=== PATIENT | male | born 1955 | race Two or more races ===

== ENCOUNTER 2016-07-08 18:10 | Emergency (ER) | payer OTHER, MEDICAID ==
[2016-07-08] MEDS ORDERED: Acetaminophen/oxyCODONE 325-5 MG Tab PO ONE ×2 (18:39→22:40)
[2016-07-08] MEDS ORDERED: Lidocaine 1% 50 ML MDV INJECT ONE (18:40)
--- NOTE | 2016-07-08 18:49 | EDM.PDOC ---
ED HPI Trauma - General Chief Complaint: Upper Extremity Injury/Pain Stated Complaint: L THUMB LACERATION Time Seen by Provider: 07/08/16 18:28 Source: Reports: Patient History Limitations: Reports: No limitations - History of Present Illness INITIAL COMMENTS - FREE TEXT/NARRATIVE: 61 year old male presents for evaluation and treatment of an injury to the left thumb. Patient reports injury occurred prior to arrival in the ER. Patient was using a cutting wheel to cut a bolt when he lost control cutting his left dorsal thumb over the IP joint. He states that he had significant amount of bleeding. He is concerned the wound went to the bone. He feels that his thumb is cold but his immediately wrapped the wound very tightly. He is able to flex and oppose the thumb but is hesitant to do so do to the bleeding. Tetanus is up-to-date. Last tetanus was 5 years ago. Occurred When: just prior to arrival Occurred Where: home Pain/Injury Location: Reports: upper extremity, left Allergies/ADRs: Allergies No Known Allergies Allergy (Verified 09/21/15 11:13) Home Medications: Ambulatory Orders Insulin Glarg,Human.Rec.Analog [LantUS Solostar] 38 units SQ BEDTIME 09/21/15 [ Confirmed 07/08/16] Insulin Regular, Human [Afrezza] 8 units SQ ASDIRECTED 09/21/15 [Confirmed 07/08] Lisinopril 2.5 mg PO DAILY 09/21/15 [Confirmed 07/08/16] atorvaSTATin Calcium [Atorvastatin Calcium] 80 mg PO DAILY 09/21/15 [Confirmed 07/08/16] Acetaminophen/oxyCODONE [Percocet 325-5 MG] 1 tab PO Q6H #20 tablet 07/08/16 Cephalexin [IJD: Cephalexin] 500 mg PO .EVERY 8 HOURS #30 cap 07/08/16 Past Medical History Cardiovascular History: Reports: High cholesterol, Hypertension Genitourinary History: Reports: Renal calculus Endocrine/Metabolic History: Reports: Diabetes, type I - Past Surgical History GI Surgical History: Reports: Cholecystectomy Male Surgical History: Reports: Vasectomy Social & Family History - Family History Psychiatric: Reports: Other (see below) Other Psychiatric Family History: alcohol abuse Endocrine/Metabolic: Reports: Diabetes, type II - Tobacco Use Smoking Status *Q: Never Smoker Second Hand Smoke Exposure: No - Caffeine Use Caffeine Use: Reports: Coffee - Recreational Drug Use Recreational Drug Use: No Review of Systems - Review of Systems Review Of Systems: See Below Musculoskeletal: Reports: hand pain (left thumb) Skin: Reports: wound (left thumb over IP joint) Neurological: Reports: Numbness (initally but has resolved with removal of pressure dressing). Denies: Tingling Trauma Exam - Physical Exam Exam: See Below Exam Limited By: No limitations General Appearance: Reports: alert, WD/WN, no apparent distress Respiratory Exam: Reports: no respiratory distress Cardiovascular: Reports: normal peripheral pulses (3+ radial pulses bilaterally ), regular rate, rhythm Extremities: Reports: normal range of motion (patient is able to make a fist, adduct, abduct flex and extend the thumb both with and without resistance and oppose fingers to thumb), pain with movement (with flexion of the left thumb), tenderness (left thumb) Neurologic: Reports: no motor/sensory deficits, alert Skin: Reports: Normal color, Warm/dry ED TRAUMA EXTREMITY PROCEDURES - Laceration/Wound Repair Left Dorsal Finger Lac/wound length in cm: 3.8 Appearance: subcutaneous, linear Distal NVT: neuro & vascular intact, no tendon injury Anesthetic type: local Local anesthesia - Lidocaine (Xylocaine): 1% plain Local anesthetic volume: 5cc Skin prep: saline, sterile drape, other (surclens) Saline irrigation (cc's): 400 Exploration/Debridement/Repair: wound explored, no foreign material found Closed with: sutures Suture size: 4-0 # of sutures: 8 Suture type: silk, interrupted, simple Sterile dressing applied: nurse Tetanus status addressed: Yes Complications: No Course - Vital Signs Last Recorded V/S: Last Vital Signs Temp Pulse 84 07/08/16 23:06 Resp 16 07/08/16 23:06 BP 140/76 07/08/16 23:06 Pulse Ox 98 07/08/16 23:06 - Orders/Labs/Meds Meds: Medications Discontinued Medications Generic Name Dose Route Start Last Admin Trade Name Terra PRN Reason Stop Dose Admin Cephalexin 500 mg 07/08/16 22:40 07/08/16 22:51 Keflex PO 07/08/16 22:41 500 mg ONETIME ONE Administration Lidocaine HCl 50 ml 07/08/16 18:40 07/08/16 19:04 Xylocaine 1% INJECT 07/08/16 18:41 50 ml ONETIME ONE Administration Oxycodone/Acetaminophen 1 tab 07/08/16 18:39 07/08/16 19:03 Percocet 325-5 Mg PO 07/08/16 18:40 1 tab ONETIME ONE Administration Oxycodone/Acetaminophen 1 tab 07/08/16 22:40 07/08/16 22:53 Percocet 325-5 Mg PO 07/08/16 22:41 1 tab ONETIME ONE Administration - Radiology Interpretation Free Text/Narrative:: xray of the left thumb reviewed by myself and Dr. Lee. Concern for bony fragments from the wound. Soft tissue wound appreciated. - Re-Assessments/Exams Free Text/Narrative Re-Assessment/Exam: 07/08/16 22:38 Percocet was given for the pain with good relief. I contacted Dr. Mehta regarding this patient as I was concerned about possible bone involvement. He reviewed the x-rays and recommended irrigation in the ER and closure of the wound with sutures. Did not feel that this was bone involvement. Recommended Keflex as the patient is a diabetic. 8 sutures were placed to the patient's left dorsal thumb. He tolerated the procedure well. I will give him another Percocet as he is continuing to have some pain. I will discharge him home with close monitoring as he is a diabetic. Tetanus is up-to-date. Discharge instructions as documented. Departure - Departure Time of Disposition: 22:43 Disposition: Home, Self-Care 01 Condition: good Clinical Impression: Laceration Prescriptions: Acetaminophen/oxyCODONE [Percocet 325-5 MG] 1 tab PO Q6H #20 tablet Cephalexin [IJD: Cephalexin] 500 mg PO .EVERY 8 HOURS #30 cap Instructions: Laceration Care, Adult, [id number] Referrals: Constance Pina PA-C [Primary Care Provider] - Forms: ED Department Discharge Additional Instructions: You were given medication in the ER that can affect your ability to drive and operate machinery. Do not drive or operate machinery within 12 hours of taking prescription narcotic pain medication. may take [id number] ibuprofen for pain. may take the Percocet one tab every 4-6 hours as needed for severe pain. Percocet can be habit-forming, I recommend you take as few of these as need to control your pain. Do not drive or operate machinery within 12 hours of taking Percocet. follow up with your primary care provider this week for a recheck. Then follow up in 10 days for suture removal. Monitor for signs of infection such as increased swelling, pus or redness. Presents to the clinic or the ER should these develop. Antibiotics as prescribed. First dose was given here in the ER tonight. Take one tab every 8 hours. He may take this with food as antibiotics can sometimes cause upset stomach. start a probiotic if you notice any upset stomach or diarrhea. wear The splint at all times. please return to the ER should your symptoms change or worsen.
[2016-07-08] MEDS ORDERED: Cephalexin 500 MG Cap PO ONE (22:40)
[2016-07-08 23:07] VITALS: BP 140/76
--- NOTE | 2016-07-09 16:49 | CR ---
Left thumb: Three views of the left thumb were obtained. Comparison: No previous study. Mild degenerative change seen within the IP joint. Bony densities are seen which appear to be chronic. Soft tissue injury also noted near the IP joint. No additional abnormality is seen. Impression: 1. Degenerative change at the IP joint. 2. Soft tissue injury is seen. No acute bony abnormality is identified. Diagnostic code #2
== END 2016-07-08 23:00 | disposition home or self-care (01) ==
LOC: JD.ED 18:10
DX: S61.012A Laceration without foreign body of left thumb without damage to nail, initial encounter (principal); I10 Essential (primary) hypertension; E78.00 Pure hypercholesterolemia, unspecified; E10.9 Type 1 diabetes mellitus without complications; Z79.899 Other long term (current) drug therapy; W31.1XXA Contact with metalworking machines, initial encounter
CPT/HCPCS: 12002; 73140; 99283; A9270

== ENCOUNTER 2020-06-29 14:46 | Emergency (ER) | payer OTHER ==
--- NOTE | 2020-06-29 15:16 | EDM.PDOC ---
ED HPI GENERAL MEDICAL PROBLEM - General Chief Complaint: Fever Stated Complaint: COVID + Time Seen by Provider: 06/29/20 15:06 Source of Information: Reports: Patient History Limitations: Reports: No Limitations - History of Present Illness INITIAL COMMENTS - FREE TEXT/NARRATIVE: 65 he presents to the ED today for monoclonal antibody therapy after visiting with the [facility]. His O2 sats are 94 to 97% on room air and he is therefore a candidate.-year-old male presents to the ED knowing that he is Covid positive. He started feeling unwell on Sunday, June 25 with fatigue. 4 of his coworkers had come down with COVID-19 within the previous 3 days. He was tested at the [place] [facility] and tested positive. Patient is an insulin-dependent diabetic for 15 years and diabetic x17 years. He would be classified as a type 1.5 diabetic since he is not overweight but diabetes occurred at late onset. Blood sugar this morning was 118. Current symptoms are that of complete loss of sense of taste and smell. He has a headache generalized myalgia still having some fever and chills. Complete loss of appetite vomited once last night and had 2 loose yellow stools last evening. He has not eaten anything today. He is experiencing heartburn with brash water reflux which is not normal for him. He feels only mildly short of breath and has a minimal cough. Cough is nonproduct kilo. He has not had any COVID-19 vaccinations. Onset: Sudden Onset Date: 06/25/20 (Darted with fatigue then generalized myalgia headache loss of appetite and loss of sense of taste and smell over the weekend.) Duration: Day(s): (Currently on day 5 of illness), Constant, Getting Worse Location: Reports: Head, Chest (Paroxysmal intermittent cough nonproductive.), Generalized (Generalized myalgia with headache), Other (Headache complete loss of appetite with vomiting last 8 and mild diarrhea. Experiencing GERD today with brash water reflux) Quality: Reports: Ache Severity: Moderate (Generalized 7 out of 10) Improves with: Reports: Medication (Improves body ache with Tylenol and Motrin) Context: Denies: Activity, Exercise, Lifting, Sick Contact, Trauma, Other Associated Symptoms: Reports: Cough, Fever/Chills, Headaches (For the last 5 days for the last 5 days), Loss of Appetite, Malaise (Nonproductive), Nausea/Vomiting (Did once last night.), Shortness of Breath, Weakness (Overwhelming fatigue and weakness), Other (Loss of sense of taste and smell x4 days.). 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, NSAIDS (Motrin sparingly.) - Related Data Allergies Allergy/AdvReac Type Severity Reaction Status Date / Time No Known Allergies Allergy Verified 06/29/20 14:57 Home Meds: Home Meds Insulin Glarg,Human.Rec.Analog [LantUS Solostar] 30 units SQ DAILY 09/21/15 [History] Insulin Regular, Human [Afrezza] 0 units SQ ASDIRECTED 09/21/15 [History] atorvaSTATin Calcium [Atorvastatin Calcium] 80 mg PO DAILY 09/21/15 [History] Alogliptin Benzoate [Alogliptin] 25 mg PO DAILY 06/29/20 [History] Cholecalciferol (Vitamin D3) [Vitamin D3] 1,250 mcg PO DAILY 06/29/20 [History] Empagliflozin [Jardiance] 25 mg PO DAILY 06/29/20 [History] glipiZIDE [Glucotrol XL] 20 mg PO BID 06/29/20 [History] Past Medical History Cardiovascular History: Reports: High Cholesterol, Hypertension Genitourinary History: Reports: Renal Calculus Endocrine/Metabolic History: Reports: Diabetes, Type I (Is classified is a type 1.5 diabetic. He was diagnosed 17 years ago and has been on insulin for 15 years. Blood sugar this morning was 118 at home without eating today.) - Infectious Disease History Infectious Disease History: Reports: Novel Coronavirus - Past Surgical History GI Surgical History: Reports: Cholecystectomy Male Surgical History: Reports: Vasectomy Social & Family History - Family History Psychiatric: Reports: Other (See Below) Other Psychiatric Family History: alcohol abuse Endocrine/Metabolic: Reports: Diabetes, type II - Tobacco Use Tobacco Use Status *Q: Never Tobacco User - Caffeine Use Caffeine Use: Reports: Coffee - Recreational Drug Use Recreational Drug Use: No - Living Situation & Occupation Living situation: Reports: Occupation: Employed ED ROS GENERAL - Review of Systems Review Of Systems: See Below Constitutional: Reports: Fever, Chills, Malaise, Weakness, Fatigue, Decreased Appetite, Weight Loss (Mild weight loss.) HEENT: Reports: Other (Patient has lost his sense of taste and smell 4 days ago) Respiratory: Reports: Shortness of Breath, Cough. Denies: Wheezing, Pleuritic Chest Pain, Sputum, Hemoptysis (Mild nonproductive cough) Cardiovascular: Reports: Dyspnea on Exertion, Lightheadedness. Denies: Chest Pain, Blood Pressure Problem, Claudication, Edema, Orthopnea, Palpitations Endocrine: Reports: Fatigue GI/Abdominal: Reports: Diarrhea (Diarrhea x2 early this morning and last night yellow loose small-volume), Decreased Appetite, Nausea, Vomiting (Vomited once last night.) : Reports: No Symptoms Musculoskeletal: Reports: Muscle Pain (Generalized myalgia) Skin: Reports: No Symptoms Neurological: Reports: Dizziness, Headache, Difficulty Walking (Weakness), Weakness. Denies: Numbness, Syncope, Tingling Psychiatric: Reports: No Symptoms Hematologic/Lymphatic: Reports: No Symptoms Immunologic: Reports: No Symptoms ED EXAM, GENERAL - Physical Exam Exam: See Below Exam Limited By: No Limitations General Appearance: Alert, WD/WN, No Apparent Distress, Other (Current temperature is 36.4 and he does not feel real warm to palpation. Heart rate was 72 and sinus respiratory was 16 to 18/min with O2 sats of 94 to 97% at rest. BP initially 144/76. Blood pressure is 119/70) Eye Exam: Bilateral Eye: Normal Inspection (No scleral icterus or blepharal pallor.), PERRL Ears: Normal TMs Throat/Mouth: Normal Oropharynx, Other (Is mildly dry) Head: Normocephalic (No oropharyngeal infection.), Sinus Tenderness Neck: Normal Inspection, Supple, Non-Tender, Full Range of Motion. No: Carotid Bruit, Lymphadenopathy (L), Lymphadenopathy (R), Thyromegaly Respiratory/Chest: No Respiratory Distress, Lungs Clear, Normal Breath Sounds, No Accessory Muscle Use Cardiovascular: Regular Rate, Rhythm, No Edema, No Gallop, No Murmur, No Rub Peripheral Pulses: 2+: Carotid (L), Carotid (R), Posterior Tibial (L), Posterior Tibial (R), Dorsalis Pedis (L), Dorsalis Pedis (R) GI/Abdominal: Normal Bowel Sounds, Soft, No Organomegaly, No Abnormal Bruit, No Mass, Pelvis Stable, Tender. No: Guarding, Rigid, Rebound Back Exam: Normal Inspection, Full Range of Motion. No: CVA Tenderness (L), CVA Tenderness (R) Extremities: Normal Inspection, Normal Range of Motion, Non-Tender, No Pedal Edema Neurological: Alert, Oriented, CN II-XII Intact, Normal Cognition Psychiatric: Normal Affect, Normal Mood Skin Exam: Warm, Dry, Intact, Normal Color, No Rash #1 Interpretation EKG Date: 06/29/20 Time: 16:30 Rhythm: NSR Rate (Beats/Min): 61 Machias: LAD-Left Machias Deviation P-Wave: Present (Minimal left axis deviation -8 degrees) QRS: Other (Q-wave V1 which could be normal. RSR prime wave I believe in V2 which is considered normal variant.) ST-T: Other (Diffuse early repolarization pattern no signs of true ischemia. T wave flattening aVL and lead III nonspecific finding) QT: Normal EKG Interpretation Comments: ECG Course - Vital Signs Last Recorded V/S: Last Vital Signs Temp 36.4 C 06/29/20 14:55 Pulse 74 06/29/20 18:00 Resp 16 06/29/20 17:15 BP 122/65 06/29/20 18:00 Pulse Ox 95 06/29/20 18:00 - Orders/Labs/Meds Orders: Active Orders 24 hr Category Date Time Status EKG Documentation Completion [RC] STAT Care 06/29/20 15:25 Active Vital Signs [RC] Q15M Care 06/29/20 15:29 Active Vital Signs [RC] Q15M Care 06/29/20 16:01 Active C-REACTIVE PROTEIN [CHEM] Stat Lab 06/29/20 16:22 Results COMPREHENSIVE METABOLIC PN,CMP [CHEM] Stat Lab 06/29/20 16:22 Results FERRITIN [CHEM] Stat Lab 06/29/20 16:22 Received LACTATE DEHYDROGENASE,LDH [CHEM] Stat Lab 06/29/20 16:22 Results MAGNESIUM [CHEM] Stat Lab 06/29/20 16:22 Results PRO B-TYPE NATRIUR PEPT,BNPPRO [CHEM] Stat Lab 06/29/20 16:22 Received TROPONIN I [CHEM] Stat Lab 06/29/20 16:22 Results Dextrose 5%-0.9% NaCl [Dextrose 5%-Normal Saline] 1,000 Med 06/29/20 15:30 Active ml IV ASDIRECTED EPINEPHrine [Adrenalin] Med 06/29/20 15:29 Active 0.3 mg IM ONETIME PRN EPINEPHrine [Adrenalin] Med 06/29/20 16:01 Active 0.3 mg IM ONETIME PRN Famotidine [Pepcid] Med 06/29/20 15:29 Active 20 mg IVPUSH ONETIME PRN Famotidine [Pepcid] Med 06/29/20 16:01 Active 20 mg IVPUSH ONETIME PRN Sodium Chloride 0.9% [Saline Flush] Med 06/29/20 15:30 Active 30 ml FLUSH ASDIRECTED Sodium Chloride 0.9% [Saline Flush] Med 06/29/20 16:15 Active 30 ml FLUSH ASDIRECTED diphenhydrAMINE [Benadryl] Med 06/29/20 15:29 Active 50 mg IVPUSH ONETIME PRN diphenhydrAMINE [Benadryl] Med 06/29/20 16:01 Active 50 mg IVPUSH ONETIME PRN methylPREDNISolone Sod Succ [Solu-MEDROL] Med 06/29/20 15:29 Active 125 mg IVPUSH ONETIME PRN methylPREDNISolone Sod Succ [Solu-MEDROL] Med 06/29/20 16:01 Active 125 mg IVPUSH ONETIME PRN Medication Orders Diphenhydramine HCl (Diphenhydramine 50 Mg/Ml Sdv) 50 mg IVPUSH ONETIME PRN PRN Reason: hypersensitivity reaction Diphenhydramine HCl (Diphenhydramine 50 Mg/Ml Sdv) 50 mg IVPUSH ONETIME PRN PRN Reason: hypersensitivity reaction Epinephrine HCl (Epinephrine 1 Mg/Ml Sdv) 0.3 mg IM ONETIME PRN PRN Reason: hypersensitivity reaction Epinephrine HCl (Epinephrine 1 Mg/Ml Sdv) 0.3 mg IM ONETIME PRN PRN Reason: hypersensitivity reaction Famotidine (Famotidine 20 Mg/2 Ml Sdv) 20 mg IVPUSH ONETIME PRN PRN Reason: hypersensitivity reaction Famotidine (Famotidine 20 Mg/2 Ml Sdv) 20 mg IVPUSH ONETIME PRN PRN Reason: hypersensitivity reaction Dextrose/Sodium Chloride (Dextrose 5%-Normal Saline) 1,000 mls @ 125 mls/hr IV ASDIRECTED ALESSANDRA Last Admin: 06/29/20 16:26 Dose: 125 mls/hr Documented by: MATLBIL Methylprednisolone Sodium Succinate (Methylprednisolone Sodium Succinate 125 Mg/2 Ml Sdv) 125 mg IVPUSH ONETIME PRN PRN Reason: hypersensitivity reaction Methylprednisolone Sodium Succinate (Methylprednisolone Sodium Succinate 125 Mg/2 Ml Sdv) 125 mg IVPUSH ONETIME PRN PRN Reason: hypersensitivity reaction Sodium Chloride (Sodium Chloride 0.9% 10 Ml Syringe) 30 ml FLUSH ASDIRECTED ALESSANDRA Sodium Chloride (Sodium Chloride 0.9% 10 Ml Syringe) 30 ml FLUSH ASDIRECTED ALESSANDRA Labs: Laboratory Tests 06/29/20 06/29/20 06/29/20 Range/Units 16:22 16:22 16:22 WBC 7.59 (4.23-9.07) K/mm3 RBC 5.05 (4.63-6.08) M/mm3 Hgb 14.9 (13.7-17.5) gm/dl Hct 45.0 (40.1-51.0) % MCV 89.1 (79.0-92.2) fl MCH 29.5 (25.7-32.2) pg MCHC 33.1 (32.2-35.5) g/dl RDW Std Deviation 46.2 H (35.1-43.9) fL Plt Count 162 L (163-337) K/mm3 MPV 10.4 (9.4-12.3) fl Neut % (Auto) 67.8 (34.0-67.9) % Lymph % (Auto) 24.8 (21.8-53.1) % [place] % (Auto) 7.0 (5.3-12.2) % Eos % (Auto) 0 L (0.8-7.0) Baso % (Auto) 0.1 (0.1-1.2) % Neut # (Auto) 5.15 (1.78-5.38) K/mm3 Lymph # (Auto) 1.88 (1.32-3.57) K/mm3 [place] # (Auto) 0.53 (0.30-0.82) K/mm3 Eos # (Auto) 0.00 L (0.04-0.54) K/mm3 Baso # (Auto) 0.01 (0.01-0.08) K/mm3 Manual Slide Review PT 10.3 (9.7-12.0) SECONDS INR 0.96 APTT 21.9 (21.7-31.4) SECONDS D-Dimer, Quantitative 1.09 H (0.19-0.50) mg/L Sodium 138 (136-145) mEq/L Potassium 4.0 (3.5-5.1) mEq/L Chloride 99 (98-107) mEq/L Carbon Dioxide 28 (21-32) mEq/L Anion Gap 15.0 (5-15) BUN 24 H (7-18) mg/dL Creatinine 1.3 (0.7-1.3) mg/dL Est Cr Clr Drug Dosing TNP Estimated GFR (MDRD) 56 (>60) mL/min BUN/Creatinine Ratio 18.5 H (14-18) Glucose 155 H (80-115) mg/dL Calcium 8.8 (8.5-10.1) mg/dL Magnesium 2.1 (1.8-2.4) mg/dl Total Bilirubin 0.5 (0.2-1.0) mg/dL AST 26 (15-37) U/L ALT 24 (16-63) U/L Alkaline Phosphatase 105 (46-116) U/L Troponin I < 0.017 (0.00-0.056) ng/mL C-Reactive Protein 4.5 H* (<1.0) mg/dL Total Protein 7.9 (6.4-8.2) g/dl Albumin 3.4 (3.4-5.0) g/dl Globulin 4.5 gm/dL Albumin/Globulin Ratio 0.8 L (1-2) Meds: Medications Generic Name Dose Route Start Last Admin Trade Name Freq PRN Reason Stop Dose Admin Diphenhydramine HCl 50 mg 06/29/20 16:01 Diphenhydramine 50 Mg/Ml Sdv IVPUSH ONETIME PRN hypersensitivity reaction Diphenhydramine HCl 50 mg 06/29/20 15:29 Diphenhydramine 50 Mg/Ml Sdv IVPUSH ONETIME PRN hypersensitivity reaction Epinephrine HCl 0.3 mg 06/29/20 16:01 Epinephrine 1 Mg/Ml Sdv IM ONETIME PRN hypersensitivity reaction Epinephrine HCl 0.3 mg 06/29/20 15:29 Epinephrine 1 Mg/Ml Sdv IM ONETIME PRN hypersensitivity reaction Famotidine 20 mg 06/29/20 16:01 Famotidine 20 Mg/2 Ml Sdv IVPUSH ONETIME PRN hypersensitivity reaction Famotidine 20 mg 06/29/20 15:29 Famotidine 20 Mg/2 Ml Sdv IVPUSH ONETIME PRN hypersensitivity reaction Dextrose/Sodium Chloride 1,000 mls @ 125 mls/hr 06/29/20 15:30 06/29/20 16:26 Dextrose 5%-Normal Saline IV 125 mls/hr ASDIRECTED ALESSANDRA Administration Methylprednisolone Sodium Succinate 125 mg 06/29/20 16:01 Methylprednisolone Sodium Succinate 125 Mg/2 Ml Sdv IVPUSH ONETIME PRN hypersensitivity reaction Methylprednisolone Sodium Succinate 125 mg 06/29/20 15:29 Methylprednisolone Sodium Succinate 125 Mg/2 Ml Sdv IVPUSH ONETIME PRN hypersensitivity reaction Sodium Chloride 30 ml 06/29/20 16:15 Sodium Chloride 0.9% 10 Ml Syringe FLUSH ASDIRECTED ALESSANDRA Sodium Chloride 30 ml 06/29/20 15:30 Sodium Chloride 0.9% 10 Ml Syringe FLUSH ASDIRECTED ALESSANDRA Discontinued Medications Generic Name Dose Route Start Last Admin Trade Name Freq PRN Reason Stop Dose Admin Bamlanivimab 700 mg/ 310 mls @ 310 mls/hr 06/29/20 16:01 06/29/20 16:53 Etesevimab 1,400 mg/ Sodium IV 06/29/20 17:00 Not Given Chloride ONETIME ONE Bamlanivimab 700 mg/ 310 mls @ 310 mls/hr 06/29/20 16:30 06/29/20 16:45 Etesevimab 1,400 mg/ Sodium IV 06/29/20 17:29 310 mls/hr Chloride ONETIME ONE Administration Bamlanivimab 700 mg/ 310 mls @ 310 mls/hr 06/29/20 15:29 06/29/20 16:54 Etesevimab 1,400 mg/ Sodium IV 06/29/20 16:28 Not Given Chloride ONETIME ONE - Radiology Interpretation Free Text/Narrative:: 65-year-old male of [place] ancestry presents to the ED on day 5 of COVID-19 positive illness. He has a mild cough. His O2 sats are maintained between 94 and 97% on room air. He has generalized myalgia headache and low-grade fever. Vomited once last night and had 2 small diarrhea stools. Complete loss of appetite. Complete loss of sense of taste and smell. He is a insulin diabetic type 1.5 and has been on insulin for 15 years for diabetes. Blood sugar at home was 118 this morning. He came to the ED at the suggestion of the [place] [facility] who tested him positive for the illness on June 25. I therefore have entered into a discussion with him that he is a candidate for monoclonal antibody therapy of which he came to the ED seeking. Currently we are using a combination of bamlanivimad and estemivab. Given the work sheet to read in this regard. I spoke with him to provide the information about treatment for himself. The patient did read the patient and caregiver EUA for the monoclonal antibodies as described above. He recognizes that the drug has been approved by an emergency use authorization process and has not been fully FDA we reviewed or approved. The patient meets the EUA requirements. I discussed there are other potential treatment options that are currently not FDA approved to treat COVID- 19 illness. We discussed the options and he had no further questions. He himself Mr. Se Acosta voiced understanding and agreed to proceed with treatment for himself. He will have chest x-ray routine labs and ECG performed and then start the infusion which has to be premixed by pharmacy. - Re-Assessments/Exams Free Text/Narrative Re-Assessment/Exam: 06/29/20 16:17 portable chest x-ray has been completed. Cardiac silhouette is normal. He does have a prominent right pulmonary artery and there is an infiltrate in the right lower lobe or right lobe of the lobe compatible with pneumonia. He has known to have COVID-19 illness. 06/29/20 17:00 I checked on the patient and he is doing fine with his infusion with no problems at this time. Labs are delayed because of problems with the chemical analyzer in the lab. 06/29/20 17:12 White count is 7.59 with 68% neutrophils. Hemoglobin is 14.9 with hematocrit of 45.0. Platelet count is 162,000. Sodium is 138 with a potassium of 4.0. Chloride is 99 with a bicarb of 28. Anion gap is 15.0 BUN is 24 with a creatinine of 1.3 . GFR is 56. BUN/creatinine ratio minimally elevated at 18.5. Glucose is 155. Calcium is 8.8 with a magnesium of 2.1. Liver function is normal. LDH is pending. Troponin I is less than 0.017 C- reactive protein is elevated at 4.5 total protein is 7.9 with an albumin fraction of 3.4 globulin is 4.5. 06/29/20 17:50 D-dimer is slightly elevated at 1.09. C-reactive protein is 4.5 the LDH is still pending. Serum ferritin is still pending as well. 06/29/20 18:18 H and serum ferritin are still not yet available. Patient is doing well with no adverse effects from the monoclonal antibody therapy. I will therefore discharge him to home. He was advised to go and purchase a pulse oximeter so that he can monitor his oxygen levels at home as the worst days are probably ahead of him in terms that most patients get worse between day 8-11 of illness. He is advised to return if he develops a pulse oximetry persistently below 90. Departure - Departure Time of Disposition: 18:18 Disposition: Home, Self-Care 01 Condition: Fair Clinical Impression: Pneumonia due to COVID-19 virus, Insulin dependent diabetes mellitus - Discharge Information *PRESCRIPTION DRUG MONITORING PROGRAM REVIEWED*: Not Applicable *COPY OF PRESCRIPTION DRUG MONITORING REPORT IN PATIENT RAJ: Not Applicable Instructions: COVID-19 Frequently Asked Questions, 10 Things You Can Do to Manage Your COVID-19 Symptoms at Home - CDC, COVID-19: How to Protect Yourself and Others - CDC, COVID-19: Quarantine vs. Isolation - CDC Referrals: PCP,None [Primary Care Provider] - Forms: ED Department Discharge Additional Instructions: Evaluation in the emergency room today in regards to known COVID-19 positivity for the last 5 days. Gradually worsening disease process with inability to eat with associated intermittent nausea vomiting and diarrhea last night. History of brash water reflux. Suggest use of Pepcid 20 mg once daily at bedtime to try and prevent heartburn and reflux. In the emergency room today chest x-ray revealed early pneumonia developing in the right lower lobe of your lung. This is common for COVID-19 illness. You were a candidate for monoclonal antibody therapy and therefore this was carried out with 2 monoclonal antibodies mixed to gether in the emergency room which were infused without any issues or problems. Other lab test done in the emergency room today are compatible with COVID-19 illness and give us a baseline in case her disease process worsens. I would suggest purchasing a pulse oximeter from any of the drug stores here in town to check your oxygen levels 3 or 4 times daily. You are in trouble if you are oxygen level or pulse oximetry level stays persistently below 90 such as 88 or 89 it would be time to return to the hospital for probable admission to the hospital. Further medications are available to fight COVID-19 illness. As you know being a diabetic is a risk factor for serious COVID-19 illness development. Continue to monitor your sugars 3-4 times daily. Typically patients are worse from day 8-11 of illness. You are currently considered to be on day 5 of illness. Continue Tylenol 650 mg every 4 hours for fever relief. May use Motrin 600 mg every 6 hours as needed for fever body ache and headache relief if needed. Pepcid 20 mg once daily every night at bedtime will help prevent irritation of the stomach from Motrin. Try plenty of fluids such as Gatorade 0 or Powerade 0 which will maintain hydration and electrolyte status without aggravating your diabetes. You should consider self quarantined for it least 10 to 12 days after onset of illness. Fatigue will be to your biggest complaint and will determine when you are able to return back to work. Sepsis Event Note (ED) - Evaluation Sepsis Screening Result: No Definite Risk - Focused Exam Vital Signs: Vital Signs Temp Pulse Resp BP Pulse Ox 06/29/20 18:00 74 122/65 95 06/29/20 17:45 78 125/66 95 06/29/20 17:15 78 16 124/69 94 L 06/29/20 17:00 80 129/69 93 L 06/29/20 16:47 84 12 120/77 94 L 06/29/20 14:55 36.4 C 72 16 144/76 H 97 - My Orders Last 24 Hours: My Active Orders 06/29/20 15:25 EKG Documentation Completion [RC] STAT 06/29/20 15:29 Vital Signs [RC] Q15M EPINEPHrine [Adrenalin] 0.3 mg IM ONETIME PRN Famotidine [Pepcid] 20 mg IVPUSH ONETIME PRN diphenhydrAMINE [Benadryl] 50 mg IVPUSH ONETIME PRN methylPREDNISolone Sod Succ [Solu-MEDROL] 125 mg IVPUSH ONETIME PRN 06/29/20 15:30 Dextrose 5%-0.9% NaCl [Dextrose 5%-Normal Saline] 1,000 ml IV ASDIRECTED Sodium Chloride 0.9% [Saline Flush] 30 ml FLUSH ASDIRECTED 06/29/20 16:01 Vital Signs [RC] Q15M EPINEPHrine [Adrenalin] 0.3 mg IM ONETIME PRN Famotidine [Pepcid] 20 mg IVPUSH ONETIME PRN diphenhydrAMINE [Benadryl] 50 mg IVPUSH ONETIME PRN methylPREDNISolone Sod Succ [Solu-MEDROL] 125 mg IVPUSH ONETIME PRN 06/29/20 16:15 Sodium Chloride 0.9% [Saline Flush] 30 ml FLUSH ASDIRECTED 06/29/20 16:22 C-REACTIVE PROTEIN [CHEM] Stat COMPREHENSIVE METABOLIC PN,CMP [CHEM] Stat FERRITIN [CHEM] Stat LACTATE DEHYDROGENASE,LDH [CHEM] Stat MAGNESIUM [CHEM] Stat PRO B-TYPE NATRIUR PEPT,BNPPRO [CHEM] Stat TROPONIN I [CHEM] Stat - Assessment/Plan Last 24 Hours: My Active Orders 06/29/20 15:25 EKG Documentation Completion [RC] STAT 06/29/20 15:29 Vital Signs [RC] Q15M EPINEPHrine [Adrenalin] 0.3 mg IM ONETIME PRN Famotidine [Pepcid] 20 mg IVPUSH ONETIME PRN diphenhydrAMINE [Benadryl] 50 mg IVPUSH ONETIME PRN methylPREDNISolone Sod Succ [Solu-MEDROL] 125 mg IVPUSH ONETIME PRN 06/29/20 15:30 Dextrose 5%-0.9% NaCl [Dextrose 5%-Normal Saline] 1,000 ml IV ASDIRECTED Sodium Chloride 0.9% [Saline Flush] 30 ml FLUSH ASDIRECTED 06/29/20 16:01 Vital Signs [RC] Q15M EPINEPHrine [Adrenalin] 0.3 mg IM ONETIME PRN Famotidine [Pepcid] 20 mg IVPUSH ONETIME PRN diphenhydrAMINE [Benadryl] 50 mg IVPUSH ONETIME PRN methylPREDNISolone Sod Succ [Solu-MEDROL] 125 mg IVPUSH ONETIME PRN 06/29/20 16:15 Sodium Chloride 0.9% [Saline Flush] 30 ml FLUSH ASDIRECTED 06/29/20 16:22 C-REACTIVE PROTEIN [CHEM] Stat COMPREHENSIVE METABOLIC PN,CMP [CHEM] Stat FERRITIN [CHEM] Stat LACTATE DEHYDROGENASE,LDH [CHEM] Stat MAGNESIUM [CHEM] Stat PRO B-TYPE NATRIUR PEPT,BNPPRO [CHEM] Stat TROPONIN I [CHEM] Stat
[2020-06-29] MEDS ORDERED: diphenhydrAMINE 50 MG/ML SDV IVPUSH PRN ×2 (15:29→16:01)
[2020-06-29] MEDS ORDERED: Famotidine 20 MG/2 ML SDV IVPUSH PRN ×2 (15:29→16:01)
[2020-06-29] MEDS ORDERED: methylPREDNISolone Sodium Succinate 125 MG/2 ML SDV IVPUSH PRN ×2 (15:29→16:01)
[2020-06-29] MEDS ORDERED: EPINEPHrine 1 MG/ML SDV IM PRN ×2 (15:29→16:01)
[2020-06-29] MEDS ORDERED: Dextrose 5%-0.9% NaCl 1,000 ML IV SCH (15:30)
[2020-06-29] MEDS ORDERED: Sodium Chloride 0.9% 10 ML Syringe FLUSH SCH ×2 (15:30→16:15)
--- NOTE | 2020-06-29 16:42 | CR ---
Chest: Portable view of the chest was obtained. Comparison: No previous study. Slight parenchymal density is noted within the right lung base. Lungs otherwise are clear. Heart size and mediastinum are normal. Bony structures show nothing acute. Surgical clips are noted from prior cholecystectomy. Impression: 1. Slight density within the right lung base either due to minimal pneumonia or areas of atelectasis. 2. Nothing acute is otherwise seen. Diagnostic code #3
[2020-06-29 18:01] VITALS: BP 122/65; PULSE 74
== END 2020-06-29 18:47 | disposition home or self-care (01) ==
LOC: JD.ED 14:46
DX: U07.1 COVID-19 (principal); J12.82 Pneumonia due to coronavirus disease 2019; E13.9 Other specified diabetes mellitus without complications; E78.00 Pure hypercholesterolemia, unspecified; I10 Essential (primary) hypertension; Z79.4 Long term (current) use of insulin; Z79.899 Other long term (current) drug therapy
CPT/HCPCS: 36415; 71045; 80053; 82728; 83615; 83735; 83880; 84484; 85025; 85379; 85610; 85730; 86140; 93005; 99285; J7042; J7050; M0245; Q0239; Q0245; 93010; 99284